=== PATIENT | female | born 1995 | race African-American/Black ===

== ENCOUNTER 2017-12-29 10:41 | Observation (INO) | payer SELFPAY ==
[~2017-12-29] VITALS: Ht 175.3 cm; Wt 68.0 kg
[2017-12-29] MEDS ORDERED: ZIPRASIDONE 20 MG INJ (GEODON) VIAL IM ONE ×2 (10:55→11:00)
[2017-12-29] MEDS ORDERED: WATER (STERILE) FOR INJECTION 20 ML ONE (10:56)
[2017-12-29 11:14] LABS: BASOPHILS % (AUTO) 0 % (0-10); EOSINOPHILS % (AUTO) 0 % (0-10); HEMATOCRIT 37 % (35-52); HEMOGLOBIN 12.8 G/DL (11.5-16.0); LYMPHOCYTES # (AUTO) 1.8 X 10^3 (1.0-4.0); LYMPHOCYTES % (AUTO) 21 % (12-44); MEAN CORPUSCULAR HEMOGLOBIN 29 PG (25-34); MEAN CORPUSCULAR HGB CONC 35 G/DL (32-36); MEAN CORPUSCULAR VOLUME 85 FL (80-99); MEAN PLATELET VOLUME 10.3 FL (7.4-10.4); MONOCYTES # (AUTO) 0.8 X 10^3 (0.0-1.0); MONOCYTES % (AUTO) 9 % (0-12); NEUTROPHILS # (AUTO) 5.8 X 10^3 (1.8-7.8); NEUTROPHILS % (AUTO) 69 % (42-75); PLATELET COUNT 255 10^3/uL (130-400); RED BLOOD COUNT 4.36 10^6/uL (4.35-5.85); WHITE BLOOD COUNT 8.4 10^3/uL (4.3-11.0)
[2017-12-29 11:45] LABS: BILIRUBIN,URINE NEGATIVE (NEGATIVE); CLARITY,URINE CLEAR; COLOR,URINE YELLOW; GLUCOSE, URINE (UA) NEGATIVE (NEGATIVE); KETONES,URINE 3+ (NEGATIVE); LEUKOCYTE ESTERASE ,URINE NEGATIVE (NEGATIVE); NITRITE,URINE NEGATIVE (NEGATIVE); PH,URINE 6 (5-9); PROTEIN,URINE 4+ (NEGATIVE); UROBILINOGEN,URINE 1 MG/DL (NORMAL)
[2017-12-29 11:45] LABS: ALANINE AMINOTRANSFERASE 19 U/L (0-55); ALBUMIN 4.4 GM/DL (3.2-4.5); ALKALINE PHOSPHATASE 67 U/L (40-136); BILIRUBIN,TOTAL 1.5 MG/DL (0.1-1.0); BUN/CREATININE RATIO 7; CALCIUM 9.6 MG/DL (8.5-10.1); CARBON DIOXIDE 24 MMOL/L (21-32); CHLORIDE 105 MMOL/L (98-107); CREATININE SERUM 1.47 MG/DL (0.60-1.30); GFR ESTIMATED 54; GLUCOSE 100 MG/DL (70-105); POTASSIUM 3.5 MMOL/L (3.6-5.0); SALICYLATE < 5.0 MG/DL (5.0-20.0); SODIUM 138 MMOL/L (135-145); TOTAL PROTEIN 7.5 GM/DL (6.4-8.2)
[2017-12-29 11:47] LABS: BACTERIA,URINE NEGATIVE /HPF; RBC,URINE RARE /HPF
[2017-12-29 11:48] LABS: ACETAMINOPHEN < 10 UG/ML (10-30)
[2017-12-29 11:59] LABS: AMPHETAMINE SCREEN, URINE POSITIVE (NEGATIVE); BARBITURATE SCREEN URINE NEGATIVE (NEGATIVE); BENZODIAZEPINES SCREEN URINE NEGATIVE (NEGATIVE); CANNABINOID SCREEN, URINE POSITIVE (NEGATIVE); COCAINE SCREEN URINE NEGATIVE (NEGATIVE); METHADONE STAT NEGATIVE (NEGATIVE); METHAMPHETAMINE SCREEN URINE S NEGATIVE (NEGATIVE); OPIATE SCREEN URINE NEGATIVE (NEGATIVE); OXYCODONE STAT NEGATIVE (NEGATIVE); PROPOXYPHENE STAT NEGATIVE (NEGATIVE); TRICYCLIC ANTIDEPRESSANTS SCRE NEGATIVE (NEGATIVE)
[2017-12-29] MEDS ORDERED: NS IV 1000 ML 1,000 ML IV ONE (12:13)
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
[2017-12-29 14:00] VITALS: BP 98/50
[2017-12-29] MEDS ORDERED: ZIPRASIDONE 20 MG INJ (GEODON) VIAL IM PRN (14:15)
[2017-12-29] MEDS ORDERED: CATHETER FLUSH 10 ML SYR IV PRN (14:15)
[2017-12-29] MEDS ORDERED: HALOPERIDOL 5 MG/ML (HALDOL) AMP ONE (14:34)
[2017-12-29] MEDS ORDERED: AMPH30TA2 PO ×2 (14:41)
[2017-12-29] MEDS ORDERED: HALOPERIDOL 5 MG/ML (HALDOL) AMP IM ONE (14:45)
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
[2017-12-29] MEDS: D5 NS W/KCL 20 MEQ/L 1,000 ML IV SCH ×3 (15:20→22:54)
[2017-12-29] MEDS ORDERED: WATER (STERILE) FOR INJECTION 10 ML ONE (15:46)
[2017-12-29 16:35] VITALS: BP 110/66
[2017-12-29 20:59] VITALS: BP 113/74
[2017-12-29 23:11] VITALS: BP 119/74
[2017-12-30 03:28] VITALS: BP 109/70
[2017-12-30] MEDS: D5 NS W/KCL 20 MEQ/L 1,000 ML IV SCH (07:27)
[2017-12-30 07:31] LABS: BASOPHILS % (AUTO) 0 % (0-10); EOSINOPHILS % (AUTO) 1 % (0-10); HEMATOCRIT 36 % (35-52); HEMOGLOBIN 12.3 G/DL (11.5-16.0); LYMPHOCYTES # (AUTO) 3.8 X 10^3 (1.0-4.0); LYMPHOCYTES % (AUTO) 49 % (12-44); MEAN CORPUSCULAR HEMOGLOBIN 29 PG (25-34); MEAN CORPUSCULAR HGB CONC 34 G/DL (32-36); MEAN CORPUSCULAR VOLUME 85 FL (80-99); MEAN PLATELET VOLUME 10.2 FL (7.4-10.4); MONOCYTES # (AUTO) 0.9 X 10^3 (0.0-1.0); MONOCYTES % (AUTO) 11 % (0-12); NEUTROPHILS % (AUTO) 39 % (42-75); PLATELET COUNT 206 10^3/uL (130-400); RED BLOOD COUNT 4.28 10^6/uL (4.35-5.85); WHITE BLOOD COUNT 7.8 10^3/uL (4.3-11.0)
[2017-12-30 07:52] LABS: ALANINE AMINOTRANSFERASE 17 U/L (0-55); ALBUMIN 3.5 GM/DL (3.2-4.5); ALKALINE PHOSPHATASE 57 U/L (40-136); BILIRUBIN,TOTAL 1.3 MG/DL (0.1-1.0); BUN/CREATININE RATIO 5; CALCIUM 8.5 MG/DL (8.5-10.1); CARBON DIOXIDE 21 MMOL/L (21-32); CHLORIDE 111 MMOL/L (98-107); CREATININE SERUM 1.08 MG/DL (0.60-1.30); GFR ESTIMATED > 60; GLUCOSE 84 MG/DL (70-105); SODIUM 138 MMOL/L (135-145); TOTAL PROTEIN 5.8 GM/DL (6.4-8.2)
--- NOTE | 2017-12-30 08:35 | Discharge Summary-Hospitalist ---
Diagnosis/Chief Complaint Date of Admission Dec 29, 2017 at 12:50 pm Date of Discharge Discharge Date: Dec 30, 2017 Admission Diagnosis Acute Psychosis Discharge Diagnosis (1) Psychosis Status: Acute Assessment & Plan: No obvious medical abnormalities on labs Will monitor overnight Mentation much improved, cooperative all night Require no further doses of antipsychotics Likely drug induced (2) Marijuana smoker Status: Chronic Assessment & Plan: UDS positvie history of smoking "wet" though patient denied to nursing staff On Adderall (amphetamines positive) Discharge Summary Discharge Physical Exam Allergies: Coded Allergies: No Known Drug Allergies (Unverified , 12/29/17) Vitals & I&Os Vital Signs Date Time Temp Pulse Resp B/P (MAP) Pulse Ox O2 Delivery O2 Flow Rate FiO2 12/30/17 10:30 12/30/17 08:38 97.3 62 18 99 Room Air General Appearance: Alert, Oriented X3 Respiratory: Clear to Auscultation Cardiovascular: Regular Rate Psych/Mental Status: Mental Status NL, Mood NL Hospital Course Pt is a [id number] who presented to the ER for erratic behavior and was admitted for observation. She required 2 doses of antipsychotics but then was otherwise cooperative. On second day of admission her mentation returned to normal and she was acting appropriately and oriented x4. She does not remember the events of yesterday. Discussed need to follow up with [facility] and [facility] will also be called to see if they can assist with follow up. She is to DC home and [facility] has agreed to check on her later today and also tomorrow to make sure she is doing wel. Labs (last 24 hrs) Laboratory Tests 12/30/17 07:25: White Blood Count 7.8, Red Blood Count 4.28L, Hemoglobin 12.3, Hematocrit 36, Mean Corpuscular Volume 85, Mean Corpuscular Hemoglobin 29, Mean Corpuscular Hemoglobin Concent 34, Red Cell Distribution Width 15.0H, Platelet Count 206, Mean Platelet Volume 10.2, Neutrophils (%) (Auto) 39L, Lymphocytes (%) (Auto) 49H, Monocytes (%) (Auto) 11, Eosinophils (%) (Auto) 1, Basophils (%) (Auto) 0, Neutrophils # (Auto) 3.0, Lymphocytes # (Auto) 3.8, Monocytes # (Auto) 0.9, Eosinophils # (Auto) 0.0, Basophils # (Auto) 0.0, Sodium Level 138, Potassium Level 4.0, Chloride Level 111H, Carbon Dioxide Level 21, Anion Gap 6, Blood Urea Nitrogen 5L, Creatinine 1.08, Estimat Glomerular Filtration Rate > 60, BUN/ Creatinine Ratio 5, Glucose Level 84, Calcium Level 8.5, Total Bilirubin 1.3H, Aspartate Amino Transf (AST/SGOT) 32, Alanine Aminotransferase (ALT/SGPT) 17, Alkaline Phosphatase 57, Total Protein 5.8L, Albumin 3.5 Patient resulted labs reviewed. Pending Labs Laboratory Tests 12/30/17 07:25: White Blood Count 7.8, Red Blood Count 4.28, Hemoglobin 12.3, Hematocrit 36, Mean Corpuscular Volume 85, Mean Corpuscular Hemoglobin 29, Mean Corpuscular Hemoglobin Concent 34, Red Cell Distribution Width 15.0, Platelet Count 206, Mean Platelet Volume 10.2, Neutrophils (%) (Auto) 39, Lymphocytes (%) (Auto) 49 , Monocytes (%) (Auto) 11, Eosinophils (%) (Auto) 1, Basophils (%) (Auto) 0, Neutrophils # (Auto) 3.0, Lymphocytes # (Auto) 3.8, Monocytes # (Auto) 0.9, Eosinophils # (Auto) 0.0, Basophils # (Auto) 0.0, Sodium Level 138, Potassium Level 4.0, Chloride Level 111, Carbon Dioxide Level 21, Anion Gap 6, Blood Urea Nitrogen 5, Creatinine 1.08, Estimat Glomerular Filtration Rate > 60, BUN/ Creatinine Ratio 5, Glucose Level 84, Calcium Level 8.5, Total Bilirubin 1.3, Aspartate Amino Transf (AST/SGOT) 32, Alanine Aminotransferase (ALT/SGPT) 17, Alkaline Phosphatase 57, Total Protein 5.8, Albumin 3.5 Discussion & Recommendations Discharge Planning: >30 minutes discharge planning Discharge Home Medications: Active Scripts Active Reported Adderall 30 mg Tablet (Dextroamphetamine/Amphetamine) 30 Mg Tablet 30 Mg PO BID Instructions to patient/family Please see electronic discharge instructions given to patient. Clinical Quality Measures DVT/VTE Risk/Contraindication: RFS Level Per Nursing on Admit: 1=Low/No VTE PPX Copy Copies To 1: CHERYL ALBRECHT MD Problem Qualifiers (1) Psychosis: Psychosis type: brief psychotic disorder Qualified Codes: F23 - Brief psychotic disorder AMEE ZHENG MD Dec 30, 2017 08:35
[2017-12-30 08:38] VITALS: BP 90/52
--- NOTE | 2017-12-30 08:38 | Discharge Inst-Simple/Standard ---
Discharge Inst-Standard Discharge Medications New, Converted or Re-Newed RX: Other Patient Instructions/Follow Up Plan of Care/Instructions/FU: Please follow up with your PCP at [facility] to follow up on this hospital stay and to make sure you are doing better. It is important to stop all illicit drug use as they can precipitate these episodes and not good for your overall health. Activity as Tolerated: Yes Discharge Diet: No Restrictions Return to The Hospital For: Recurring symptoms, confusion, or if you think you are doing worse. AMEE ZHENG MD Dec 30, 2017 8:38 am
== END 2017-12-30 10:30 | disposition home or self-care (01) ==
LOC: ER 10:44 → 4TH 12:50 → ICU 15:10
PROVIDERS: ADMIT Family Medicine; ATTEND Family Medicine
DX: F23 Brief psychotic disorder (principal); F12.90 Cannabis use, unspecified, uncomplicated
CPT/HCPCS: 36415; 80053; 80306; 80320; 80329; 81000; 84443; 84703; 85025; 93005; 96372

== ENCOUNTER 2017-12-30 16:36 | Emergency (ER) | payer SELFPAY ==
[~2017-12-30] VITALS: Ht 175.3 cm; Wt 68.0 kg
[~2017-12-30 16:36] MED LIST: AMPH30TA2 PO
[2017-12-30 17:15] VITALS: BP 148/90
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
== END 2017-12-30 17:15 | disposition left against medical advice (07) ==
LOC: EDUNIT# 16:36 → ER 16:37
DX: F41.9 Anxiety disorder, unspecified (principal); T43.625A Adverse effect of amphetamines, initial encounter; F90.9 Attention-deficit hyperactivity disorder, unspecified type; F12.90 Cannabis use, unspecified, uncomplicated
CPT/HCPCS: 99284

== ENCOUNTER 2017-12-30 20:15 | Emergency (ER) | payer SELFPAY ==
[~2017-12-30] VITALS: Ht 175.3 cm; Wt 68.0 kg
[2017-12-30 20:20] VITALS: BP 120/85
[2017-12-30 20:36] LABS: BASOPHILS % (AUTO) 1 % (0-10); EOSINOPHILS % (AUTO) 0 % (0-10); HEMATOCRIT 41 % (35-52); LYMPHOCYTES # (AUTO) 2.7 X 10^3 (1.0-4.0); LYMPHOCYTES % (AUTO) 33 % (12-44); MEAN CORPUSCULAR HEMOGLOBIN 29 PG (25-34); MEAN CORPUSCULAR HGB CONC 34 G/DL (32-36); MEAN CORPUSCULAR VOLUME 86 FL (80-99); MEAN PLATELET VOLUME 10.2 FL (7.4-10.4); MONOCYTES # (AUTO) 0.6 X 10^3 (0.0-1.0); MONOCYTES % (AUTO) 8 % (0-12); NEUTROPHILS % (AUTO) 59 % (42-75); PLATELET COUNT 261 10^3/uL (130-400); RED BLOOD COUNT 4.82 10^6/uL (4.35-5.85); RED CELL DISTRIBUTION WIDTH 15.1 % (10.0-14.5); WHITE BLOOD COUNT 8.4 10^3/uL (4.3-11.0)
[2017-12-30 20:36] LABS: BILIRUBIN,URINE NEGATIVE (NEGATIVE); CLARITY,URINE VERY CLOUDY; COLOR,URINE YELLOW; GLUCOSE, URINE (UA) NEGATIVE (NEGATIVE); KETONES,URINE 4+ (NEGATIVE); LEUKOCYTE ESTERASE ,URINE 2+ (NEGATIVE); NITRITE,URINE NEGATIVE (NEGATIVE); PH,URINE 5 (5-9); PROTEIN,URINE NEGATIVE (NEGATIVE); UROBILINOGEN,URINE NORMAL (NORMAL)
[2017-12-30] MEDS ORDERED: WATER (STERILE) FOR INJECTION 20 ML ONE (20:42)
[2017-12-30 20:44] LABS: BACTERIA,URINE MODERATE /HPF; SQUAMOUS EPITHELIAL CELL,UR >50 /HPF
[2017-12-30] MEDS ORDERED: ZIPRASIDONE 20 MG INJ (GEODON) VIAL IM ONE (20:45)
--- NOTE | 2017-12-30 20:48 | ED Psychosocial ---
General Chief Complaint: Psych/Social Disorder Stated Complaint: MED CLEAR Nursing Triage Note: PT PRESENTS TO ER FOR MEDICAL CLEARANCE FOR [facility] PLACEMENT. History of Present Illness Date Seen by Provider: Dec 30, 2017 Time Seen by Provider: 20:30 Initial Comments 22 year old -[place] female here for the third time in the last 2 days for acute psychosis and possible use of formaldehyde laced marijuana. She left here at approximately 1630, after taking 2 Adderall and having altered thought processes. She was evaluated by [facility] screener and was in agreement to inpatient treatment at [facility] in [place], [place]. Patient presents with the [employer] for medical screening. She denies any suicidal or homicidal thoughts. Timing/Duration: yesterday Severity: moderate Associated Symptoms: anxiety, impaired concentration, insomnia Allergies and Home Medications Allergies Coded Allergies: No Known Drug Allergies (Unverified , 12/29/17) Home Medications Dextroamphetamine/Amphetamine 30 Mg Tablet, 30 MG PO BID, (Reported) Patient Home Medication List Home Medication List Reviewed: Yes Constitutional: no symptoms reported, see HPI Psychiatric/Neurological: Anxiety, Emotional Problems (hallucinations) All Other Systems Reviewed Negative Unless Noted: Yes Past Rnrtdpt-Onwtar-Wjusdl Hx Patient Social History Alcohol Use: Denies Use Number of Drinks Today: II Alcohol Beverage of Choice: Other Recreational Drug Use: Yes Drug of Choice: POT Smoking Status: Never a Smoker Recent Foreign Travel: No Contact w/Someone Who Travel: No Recent Infectious Disease Expo: No Recent Hopitalizations: Yes (12/29/17) Immunizations Up To Date Tetanus Booster (TDap): Unknown PED Vaccines UTD: Yes Past Medical History Surgeries: No Respiratory: No Cardiac: No Neurological: No Genitourinary: No Gastrointestinal: No Musculoskeletal: No Endocrine: No HEENT: No Cancer: No Psychosocial: Yes Anxiety, Personality Disorder Blood Disorders: No Adverse Reaction/Blood Tranf: No Family Medical History No Pertinent Family Hx Physical Exam Vital Signs Vital Signs - First Documented 12/30/17 20:20 Temp 98.0 Pulse 88 Resp 20 B/P (MAP) 120/85 (97) Pulse Ox 98 O2 Delivery Room Air Capillary Refill : Less Than 3 Seconds General Appearance: WD/WN, no apparent distress HEENT: PERRL/EOMI, normal ENT inspection, TMs normal, pharynx normal Neck: non-tender, full range of motion, supple, normal inspection Respiratory: chest non-tender, lungs clear, normal breath sounds Cardiovascular: normal peripheral pulses, regular rate, rhythm Gastrointestinal: normal bowel sounds, non tender, soft Neurologic/Psychiatric: alert, oriented x 3 Appearance/Memory: appropriate appearance; No appropriate insight, No neat; denies illness, impaired recent memory Behavior/Eye Contact: good eye contact, normal speech Thoughts/Hallucinations: flight of ideas, obsessive, paranoid, visual hallucinations Skin: normal color, warm/dry Progress/Results/Core Measures Lab Results My Orders Orders - GIANCARLO RODRIGES Iv Infusion <= First Hr Ed (12/30/17 ) Im/Sub-Q Injection Non-Ab Ed (12/30/17 ) Medications Given in ED Vital Signs/I&O Blood Pressure Mean: 97 Progress Note : Time: 20:30 Progress Note Initial evaluation completed. Labs and EKG ordered for medical clearance. patient having flight of ideas with asking every 2-5 minutes when she can leave. 2044 patient ran out of the emergency department, went through hospital hallways and return to waiting room of the emergency department. She return to her room non-confrontational. Continues to be extremely anxious with flight of ideas. Geodon 20 mg IM. Pt brought here by [employer] after visiting with [facility] Screener and agreeing to proceed to [facility] for in- patient treatment. Shanta reports [facility] has a bed, but Medical Clearance is needed and documents faxed to [facility] for approval. 2109 patient resting in no signs of distress, eyes closed. All reports, EKG and labs faxed to [facility] for consideration of transfer. 2129 urine shows UTI with 4+ ketones, will give normal saline 1 L IV and Rocephin 1 g IV. Shanta from [facility] present for completion of her screening and referral to [facility]. 0 IV infusing, Rocephin completed, resting with eyes closed, no distress. 0 patient ambulated to bathroom, she pulled her IV out. Approximately 500 ML' s of her normal saline was infused. She is drinking water. 2300 patient resting in bed, eyes closed no acute distress. Spoke with [facility], agreed to transfer patient when bed assigned. 5 patient resting in bed, eyes closed no signs of distress. Verified with Katy Carter, awaiting review nurse for acceptance for transfer. 0015 patient awoke and attempted to leave the emergency department, redirected back to room. No complaints at this time. 0030 patient resting in bed eyes closed, no acute signs of distress. Report given to Dr. Curtis who agrees to assume care of patient until transfer. Initial ECG Impression Date: Dec 30, 2017 Initial ECG Impression Time: 20:24 Initial ECG Rate: 51 Initial ECG Rhythm: Normal Sinus Initial ECG Intervals: Normal Initial ECG Intervals MD 136, QRSD 88, QT 408, QTC 376. [place] P 67, QRS 14, T 21. Departure Impression Primary Impression: Acute psychosis Additional Impressions: UTI (urinary tract infection) Qualified Codes: N30.00 - Acute cystitis without hematuria Substance abuse Disposition: 07 AGAINST MEDICAL ADVICE Condition: Stable Transfer Method of Transfer: Private Vehicle Departure-Patient Inst. Decision time for Depature: 01:45 Referrals: NO,LOCAL PHYSICIAN (PCP/Family) Primary Care Physician Add. Discharge Instructions: Return to emergency department for any new concerns or problems. [facility]. All discharge instructions reviewed with patient and/or family. Voiced understanding. Copy Copies To 1: CHERYL ALBRECHT MD, AMY ARNP Dec 30, 2017 20:48
[2017-12-30 20:53] LABS: AMPHETAMINE SCREEN, URINE POSITIVE (NEGATIVE); BARBITURATE SCREEN URINE NEGATIVE (NEGATIVE); BENZODIAZEPINES SCREEN URINE NEGATIVE (NEGATIVE); CANNABINOID SCREEN, URINE POSITIVE (NEGATIVE); COCAINE SCREEN URINE NEGATIVE (NEGATIVE); METHADONE STAT NEGATIVE (NEGATIVE); METHAMPHETAMINE SCREEN URINE S NEGATIVE (NEGATIVE); OPIATE SCREEN URINE NEGATIVE (NEGATIVE); OXYCODONE STAT NEGATIVE (NEGATIVE); PROPOXYPHENE STAT NEGATIVE (NEGATIVE); TRICYCLIC ANTIDEPRESSANTS SCRE NEGATIVE (NEGATIVE)
[2017-12-30 20:55] LABS: ALANINE AMINOTRANSFERASE 25 U/L (0-55); ALBUMIN 4.8 GM/DL (3.2-4.5); ALKALINE PHOSPHATASE 77 U/L (40-136); BILIRUBIN,TOTAL 1.7 MG/DL (0.1-1.0); BUN/CREATININE RATIO 4; CALCIUM 9.7 MG/DL (8.5-10.1); CARBON DIOXIDE 23 MMOL/L (21-32); CHLORIDE 103 MMOL/L (98-107); CREATININE SERUM 1.23 MG/DL (0.60-1.30); GFR ESTIMATED > 60; GLUCOSE 102 MG/DL (70-105); POTASSIUM 3.7 MMOL/L (3.6-5.0); SALICYLATE < 5.0 MG/DL (5.0-20.0); SODIUM 136 MMOL/L (135-145); TOTAL PROTEIN 8.2 GM/DL (6.4-8.2)
[2017-12-30 20:59] LABS: ACETAMINOPHEN < 10 UG/ML (10-30)
[2017-12-30] MEDS ORDERED: NS IV 1000 ML 1,000 ML IV SCH (21:34)
[2017-12-30] MEDS ORDERED: cefTRIAXone INJECTION 1,000 MG in NS (IVPB) 100 ML IV ONE (21:45)
== END 2017-12-31 01:45 | disposition home or self-care (01) ==
LOC: EDUNIT# 20:15 → ER 20:17
DX: F23 Brief psychotic disorder (principal); N39.0 Urinary tract infection, site not specified; F41.9 Anxiety disorder, unspecified; F60.9 Personality disorder, unspecified; F12.90 Cannabis use, unspecified, uncomplicated
CPT/HCPCS: 36415; 80053; 80306; 80320; 80329; 81000; 85025; 87088; 93005; 96365; 96372